=== PATIENT | female | born 1935 | race Two or more races ===

== ENCOUNTER 2022-09-24 09:28 | Inpatient (IN) | payer OTHER, MEDICAID ==
[~2022-09-24] VITALS: Ht 157.5 cm; Wt 78.9 kg
[~2022-09-24 09:28] MED LIST: ASPI81CH43; GLYB2.5T9; LOSA25TA5; METF-370; NAPR125S6; PRAVASTATIN; TRIA25CA
[2022-09-24] MEDS ORDERED: ONDANSETRON HCL 4 MG/2 ML VIAL IV ONE (10:00)
[2022-09-24 10:12] LABS: Basophils # (auto) 0 10 ^3/uL (0-0.2); Basophils % (auto) 0.7 % (0.0-2.0); Eosinophils # (auto) 0.1 10 ^3/uL (0-0.8); Monocytes # (auto) 0.6 10 ^3/uL (0-1.3); Nucleated Red Blood Cells % 0.1 %
[2022-09-24 10:14] LABS: Eosinophils % (auto) 1.2 % (0.0-7.0); Hematocrit 40.5 % (36.0-46.0); Hemoglobin 12.8 g/dL (12.2-16.2); Lymphocytes % (auto) 15.7 % (10.0-50.0); Mean Corpuscular Hemoglobin 26.4 pg (28.0-32.0); Mean Corpuscular Hgb Conc. 31.6 g/dL (32.0-36.0); Mean Corpuscular Volume 83.4 fL (80.0-100.0); Monocytes % (auto) 9.6 % (0.0-12.0); Neutrophils # (auto) 4.6 10 ^3/uL (1.6-8.6); Neutrophils % (auto) 72.8 % (37.0-80.0); Red Blood Cells 4.86 10^6/uL (4.0-5.20); Red Cell Distribution Width 15.3 % (11.8-14.3); White Blood Cell 6.3 10^3/uL (4.4-10.8)
[2022-09-24 10:29] LABS: Potassium 4.8 mmol/L (3.5-5.1)
[2022-09-24 10:37] LABS: Albumin 3.6 g/dL (3.4-5.0); BUN/Creatinine Ratio 13.4 (10.0-20.0); Bilirubin, Total 0.3 mg/dL (0.2-1.0); Calcium 8.7 mg/dL (8.5-10.1); Magnesium 1.5 mg/dL (1.6-2.6); Total Protein 7.1 g/dL (6.4-8.2)
[2022-09-24] MEDS ORDERED: PROCHLORPERAZINE EDISYLATE 5 MG/ML 2ML VIAL IV ONE (13:30)
[2022-09-24 14:04] LABS: Urine Bacteria NONE SEEN /hpf (None Seen); Urine Blood Negative /uL (Negative); Urine WBC 1 /hpf (0 - 5)
[2022-09-24] MEDS ORDERED: NITROGLYCERIN 0.4 MG SL TAB SL PRN (15:00)
[2022-09-24] MEDS ORDERED: DEXTROSE (50%) 50ML SYRG IV PRN (15:00)
[2022-09-24] MEDS ORDERED: MECLIZINE HCL 25 MG TAB PO ONE (15:00)
[2022-09-24] MEDS ORDERED: MORPHINE SULFATE INJ 2 MG/ml SYRG IV PRN (15:00)
[2022-09-24] MEDS: SODIUM CHLORIDE 0.9% 1,000 ML IV SCH ×2 (15:17→15:54)
[2022-09-24] MEDS: MAGNESIUM SULFATE 1GM/100ML 100 ML IV SCH ×3 (15:17→17:14)
[2022-09-24 15:30] LABS: Cholesterol 148 mg/dL (< 200)
[2022-09-24 15:32] LABS: HDL Cholesterol 39 mg/dL (40-59); LDL Cholesterol 92 mg/dL (< 100); Triglycerides 168 mg/dL (< 150)
[2022-09-24 15:59] LABS: Alcohol, Urine < 3.0 mg/dL (0-10); Amphetamine Screen, Urine NEGATIVE (NEGATIVE); Barbiturate Scree,Urine NEGATIVE (NEGATIVE); Benzodiazephine Screen, Urine NEGATIVE (NEGATIVE); Cannabinoid Screen, Urine NEGATIVE (NEGATIVE); Cocaine Screen, Urine NEGATIVE (NEGATIVE); Opiate Scree,Urine NEGATIVE (NEGATIVE); Phencyclidine Screen, Urine NEGATIVE (NEGATIVE)
[2022-09-24] MEDS: ACCU-CHEK COMFORT CURVE STRIP VI SCH ×2 (17:21→22:20)
[2022-09-24] MEDS: InsuLIN REG 1unit/0.01ml Soln (100units/ml) SC SCH ×2 (17:22→22:00)
[2022-09-25 05:31] LABS: Basophils # (auto) 0 10 ^3/uL (0-0.2); Eosinophils # (auto) 0 10 ^3/uL (0-0.8); Lymphocytes # (auto) 1.4 10 ^3/uL (0.4-5.4); Monocytes # (auto) 0.6 10 ^3/uL (0-1.3); Neutrophils # (auto) 1.7 10 ^3/uL (1.6-8.6)
[2022-09-25 05:33] LABS: Basophils % (auto) 0.6 % (0.0-2.0); Eosinophils % (auto) 0.6 % (0.0-7.0); Hematocrit 36.9 % (36.0-46.0); Hemoglobin 11.8 g/dL (12.2-16.2); Lymphocytes % (auto) 36.7 % (10.0-50.0); Mean Corpuscular Hemoglobin 26.7 pg (28.0-32.0); Mean Corpuscular Hgb Conc. 31.8 g/dL (32.0-36.0); Mean Corpuscular Volume 83.9 fL (80.0-100.0); Monocytes % (auto) 15.8 % (0.0-12.0); Neutrophils % (auto) 46.3 % (37.0-80.0); Nucleated Red Blood Cells % 0.4 %; Red Cell Distribution Width 15.1 % (11.8-14.3); White Blood Cell 3.7 10^3/uL (4.4-10.8)
[2022-09-25 05:51] LABS: Potassium 4.1 mmol/L (3.5-5.1)
[2022-09-25 06:03] LABS: BUN/Creatinine Ratio 13.6 (10.0-20.0); Bilirubin, Total 0.2 mg/dL (0.2-1.0); Total Protein 6.5 g/dL (6.4-8.2)
[2022-09-25] MEDS: ACCU-CHEK COMFORT CURVE STRIP VI SCH ×4 (06:29→22:00)
[2022-09-25] MEDS: InsuLIN REG 1unit/0.01ml Soln (100units/ml) SC SCH ×4 (06:29→22:00)
[2022-09-25] MEDS: MECLIZINE HCL 25 MG TAB PO PRN ×2 (06:56→16:17)
[2022-09-25 09:54] VITALS: BP 154/79
[2022-09-25] MEDS: ONDANSETRON HCL 4 MG/2 ML VIAL IV PRN ×2 (10:41→16:18)
[2022-09-25] MEDS: ASPirin 81 mg TAB PO SCH (10:44)
[2022-09-25] MEDS: LOSARTAN POTASSIUM 25 MG TAB PO SCH (10:44)
[2022-09-25] MEDS: ENOXAPARIN SOD 40 MG/0.4 ML SYRINGE SC SCH (10:45)
[2022-09-25 13:00] VITALS: BP_SYST 116; BP_SYST 155; BP_SYST 156; BP_DIAS 56; BP_DIAS 60; BP_DIAS 73
[2022-09-25] MEDS ORDERED: IOHEXOL 350 MG/ML 100ML IJ ONE (16:03)
[2022-09-25] MEDS ORDERED: diphenhdrAMINE HCL 50 MG/1 ML VL IV ONE (16:15)
[2022-09-25] MEDS ORDERED: PANTOPRAZOLE 40 MG/10 ML VIAL INJ IV ONE (16:15)
[2022-09-25] MEDS ORDERED: methylPREDNISolone SOD SUCC 40 MG/ML VL IV ONE (16:15)
[2022-09-25 17:16] VITALS: BP 140/63
[2022-09-25] MEDS: SODIUM CHLORIDE 0.9% 1,000 ML IV SCH (17:40)
[2022-09-25] MEDS ORDERED: DexAMETHasone SOD PHOS 10MG/1ML VIAL INJ IV ONE (18:00)
[2022-09-25 20:00] VITALS: BP 154/79
[2022-09-25 22:00] VITALS: BP_SYST 150; BP_SYST 156; BP_SYST 171; BP_DIAS 67; BP_DIAS 79; BP_DIAS 81
[2022-09-25] MEDS: ATORVASTATIN 20 MG TAB PO SCH (22:47)
[2022-09-26 05:00] VITALS: BP 154/62
[2022-09-26] MEDS: InsuLIN REG 1unit/0.01ml Soln (100units/ml) SC SCH ×4 (06:53→21:20)
[2022-09-26] MEDS: ACCU-CHEK COMFORT CURVE STRIP VI SCH ×4 (06:55→21:20)
[2022-09-26] MEDS: SODIUM CHLORIDE 0.9% 1,000 ML IV SCH ×2 (06:56→20:20)
[2022-09-26 09:00] VITALS: BP 151/64
[2022-09-26] MEDS: ASPirin 81 mg TAB PO SCH (10:11)
[2022-09-26] MEDS: ENOXAPARIN SOD 40 MG/0.4 ML SYRINGE SC SCH (10:11)
[2022-09-26] MEDS: LOSARTAN POTASSIUM 25 MG TAB PO SCH (10:11)
[2022-09-26 12:41] VITALS: BP 164/69
[2022-09-26 16:41] VITALS: BP 144/71
[2022-09-26 20:00] VITALS: BP 146/76
[2022-09-26] MEDS: ATORVASTATIN 20 MG TAB PO SCH (21:17)
[2022-09-26 22:00] VITALS: BP 152/57
[2022-09-27 05:00] VITALS: BP 167/65
[2022-09-27] MEDS: ACCU-CHEK COMFORT CURVE STRIP VI SCH ×4 (06:04→21:20)
[2022-09-27] MEDS: InsuLIN REG 1unit/0.01ml Soln (100units/ml) SC SCH ×4 (06:05→21:47)
[2022-09-27 08:46] VITALS: BP 174/87
[2022-09-27] MEDS: SODIUM CHLORIDE 0.9% 1,000 ML IV SCH ×2 (08:57→23:00)
[2022-09-27] MEDS: ENOXAPARIN SOD 40 MG/0.4 ML SYRINGE SC SCH (08:59)
[2022-09-27] MEDS: LOSARTAN POTASSIUM 25 MG TAB PO SCH (09:00)
[2022-09-27] MEDS: ASPirin 81 mg TAB PO SCH (09:00)
[2022-09-27] MEDS: ONDANSETRON HCL 4 MG/2 ML VIAL IV PRN (11:37)
[2022-09-27 13:00] VITALS: BP 176/76
[2022-09-27] MEDS: hydrALAZINE HCL 20 MG/ML VL IV PRN (13:00)
[2022-09-27] MEDS: ACETAMINOPHEN 325 MG TAB PO PRN (13:01)
[2022-09-27 17:00] VITALS: BP 143/76
[2022-09-27] MEDS ORDERED: GABA-1250 PO (18:06)
[2022-09-27] MEDS ORDERED: GLIP2.5T9 PO (18:13)
[2022-09-27] MEDS ORDERED: FENO160T PO (18:13)
[2022-09-27] MEDS ORDERED: PANT40T PO (18:13)
[2022-09-27] MEDS ORDERED: METF-371 PO (18:13)
[2022-09-27] MEDS ORDERED: GLYB5TAB8 PO (18:13)
[2022-09-27] MEDS ORDERED: POTA1TAB61 PO (18:13)
[2022-09-27] MEDS ORDERED: TRAM50TA2 PO (18:13)
[2022-09-27 20:00] VITALS: BP 138/54
[2022-09-27] MEDS: ATORVASTATIN 20 MG TAB PO SCH (21:17)
[2022-09-27 22:00] VITALS: BP 138/54
[2022-09-28] MEDS: hydrALAZINE HCL 20 MG/ML VL IV PRN ×2 (04:47→18:41)
[2022-09-28 05:00] VITALS: BP 185/75
[2022-09-28] MEDS: ACCU-CHEK COMFORT CURVE STRIP VI SCH ×4 (06:02→21:50)
[2022-09-28] MEDS: InsuLIN REG 1unit/0.01ml Soln (100units/ml) SC SCH ×4 (06:03→21:51)
[2022-09-28] MEDS: ENOXAPARIN SOD 40 MG/0.4 ML SYRINGE SC SCH (08:38)
[2022-09-28] MEDS: LOSARTAN POTASSIUM 25 MG TAB PO SCH (08:38)
[2022-09-28] MEDS: ASPirin 81 mg TAB PO SCH (08:39)
[2022-09-28 09:00] VITALS: BP 124/70
[2022-09-28] MEDS: SODIUM CHLORIDE 0.9% 1,000 ML IV SCH (11:42)
[2022-09-28 13:00] VITALS: BP 105/60
[2022-09-28] MEDS: TRIAMTERENE/HCTZ 37.5/25 MG CAP/TAB PO SCH (13:00)
[2022-09-28 17:00] VITALS: BP 132/71
[2022-09-28] MEDS: ACETAMINOPHEN 325 MG TAB PO PRN (18:40)
[2022-09-28] MEDS: ONDANSETRON HCL 4 MG/2 ML VIAL IV PRN (20:23)
[2022-09-28] MEDS: MECLIZINE HCL 25 MG TAB PO PRN (20:36)
[2022-09-28] MEDS: ATORVASTATIN 20 MG TAB PO SCH (21:43)
[2022-09-28 22:00] VITALS: BP 111/62
[2022-09-29] MEDS: SODIUM CHLORIDE 0.9% 1,000 ML IV SCH ×2 (03:26→17:37)
[2022-09-29 05:00] VITALS: BP 150/72
[2022-09-29 06:05] LABS: Basophils # (auto) 0 10 ^3/uL (0-0.2); Eosinophils # (auto) 0 10 ^3/uL (0-0.8); Eosinophils % (auto) 1.1 % (0.0-7.0); Lymphocytes # (auto) 1.3 10 ^3/uL (0.4-5.4); Monocytes # (auto) 0.4 10 ^3/uL (0-1.3); Nucleated Red Blood Cells % 0.2 %; White Blood Cell 3.2 10^3/uL (4.4-10.8)
[2022-09-29] MEDS: ACCU-CHEK COMFORT CURVE STRIP VI SCH ×4 (06:05→21:32)
[2022-09-29] MEDS: InsuLIN REG 1unit/0.01ml Soln (100units/ml) SC SCH ×4 (06:07→21:32)
[2022-09-29 06:09] LABS: Basophils % (auto) 0.4 % (0.0-2.0); Hematocrit 38.6 % (36.0-46.0); Hemoglobin 12.5 g/dL (12.2-16.2); Lymphocytes % (auto) 41.3 % (10.0-50.0); Mean Corpuscular Hemoglobin 26.8 pg (28.0-32.0); Mean Corpuscular Hgb Conc. 32.3 g/dL (32.0-36.0); Mean Corpuscular Volume 82.8 fL (80.0-100.0); Monocytes % (auto) 11.8 % (0.0-12.0); Neutrophils # (auto) 1.5 10 ^3/uL (1.6-8.6); Neutrophils % (auto) 45.4 % (37.0-80.0); Red Blood Cells 4.66 10^6/uL (4.0-5.20); Red Cell Distribution Width 15.5 % (11.8-14.3)
[2022-09-29 06:27] LABS: Potassium 3.7 mmol/L (3.5-5.1)
[2022-09-29 06:37] LABS: BUN/Creatinine Ratio 15.4 (10.0-20.0); Bilirubin, Total 0.4 mg/dL (0.2-1.0); Calcium 8.1 mg/dL (8.5-10.1); Total Protein 6.6 g/dL (6.4-8.2)
[2022-09-29 06:42] LABS: INR 0.92 (0.9-1.15); Partial Thromboplastin Time 28.3 sec (24.6-33.4)
[2022-09-29 08:43] VITALS: BP 169/70
[2022-09-29] MEDS: TRIAMTERENE/HCTZ 37.5/25 MG CAP/TAB PO SCH (09:15)
[2022-09-29] MEDS: LOSARTAN POTASSIUM 25 MG TAB PO SCH (09:16)
[2022-09-29 12:32] VITALS: BP 147/73
[2022-09-29] MEDS: ENOXAPARIN SOD 40 MG/0.4 ML SYRINGE SC SCH (12:48)
[2022-09-29] MEDS: ASPirin 81 mg TAB PO SCH (12:48)
[2022-09-29] MEDS: ONDANSETRON HCL 4 MG/2 ML VIAL IV PRN (14:25)
[2022-09-29] MEDS: MECLIZINE HCL 25 MG TAB PO PRN (14:25)
[2022-09-29] MEDS: hydrALAZINE HCL 20 MG/ML VL IV PRN (17:04)
[2022-09-29 17:18] VITALS: BP 154/73
[2022-09-29] MEDS: PANTOPRAZOLE 40 MG/10 ML VIAL INJ IV SCH (21:32)
[2022-09-29] MEDS: ATORVASTATIN 20 MG TAB PO SCH (21:32)
[2022-09-29] MEDS: diphenhdrAMINE HCL 25 MG CAP PO SCH (21:32)
[2022-09-29 22:00] VITALS: BP 124/59
[2022-09-30] VITALS (12 sets, daily range): BP systolic 111–150; BP diastolic 46–94
[2022-09-30 06:00] LABS: Basophils # (auto) 0 10 ^3/uL (0-0.2); Basophils % (auto) 0.5 % (0.0-2.0); Eosinophils # (auto) 0.1 10 ^3/uL (0-0.8); Eosinophils % (auto) 1.6 % (0.0-7.0); Hemoglobin 12.5 g/dL (12.2-16.2); Lymphocytes # (auto) 1.6 10 ^3/uL (0.4-5.4); Mean Corpuscular Hemoglobin 26.8 pg (28.0-32.0); Monocytes # (auto) 0.4 10 ^3/uL (0-1.3); Red Blood Cells 4.67 10^6/uL (4.0-5.20); White Blood Cell 4.6 10^3/uL (4.4-10.8)
[2022-09-30 06:03] LABS: Hematocrit 39.2 % (36.0-46.0); Lymphocytes % (auto) 35.2 % (10.0-50.0); Mean Corpuscular Hgb Conc. 31.9 g/dL (32.0-36.0); Mean Corpuscular Volume 83.9 fL (80.0-100.0); Monocytes % (auto) 8.4 % (0.0-12.0); Neutrophils # (auto) 2.5 10 ^3/uL (1.6-8.6); Neutrophils % (auto) 54.3 % (37.0-80.0); Nucleated Red Blood Cells % 0.4 %; Red Cell Distribution Width 15.4 % (11.8-14.3)
[2022-09-30 06:11] LABS: Anion Gap 5 (5-15); Calcium 8.3 mg/dL (8.5-10.1); Carbon Dioxide 25 mmol/L (21-32); Chloride 106 mmol/L (98-107); GFR African American 154 mL/min; GFR Non-African American 127 mL/min; Glucose 124 mg/dL (74-106); Potassium 3.7 mmol/L (3.5-5.1); Sodium 136 mmol/L (136-145)
[2022-09-30 06:15] LABS: BUN/Creatinine Ratio 14.3 (10.0-20.0); Blood Urea Nitrogen 7 mg/dL (7-18)
[2022-09-30] MEDS: InsuLIN REG 1unit/0.01ml Soln (100units/ml) SC SCH ×4 (06:26→22:00)
[2022-09-30] MEDS: ACCU-CHEK COMFORT CURVE STRIP VI SCH ×4 (06:27→21:42)
[2022-09-30] MEDS: SODIUM CHLORIDE 0.9% 1,000 ML IV SCH ×2 (06:27→17:01)
[2022-09-30 06:32] LABS: INR 0.98 (0.9-1.15); Partial Thromboplastin Time 28.1 sec (24.6-33.4)
[2022-09-30] MEDS: PANTOPRAZOLE 40 MG/10 ML VIAL INJ IV SCH ×2 (09:16→21:33)
[2022-09-30] MEDS: TRIAMTERENE/HCTZ 37.5/25 MG CAP/TAB PO SCH (09:17)
[2022-09-30] MEDS: ASPirin 81 mg TAB PO SCH (09:17)
[2022-09-30] MEDS: diphenhdrAMINE HCL 25 MG CAP PO SCH ×2 (09:17→21:33)
[2022-09-30] MEDS: ENOXAPARIN SOD 40 MG/0.4 ML SYRINGE SC SCH (09:18)
[2022-09-30] MEDS: LOSARTAN POTASSIUM 25 MG TAB PO SCH (09:18)
[2022-09-30] MEDS ORDERED: methylPREDNISolone SOD SUCC 40 MG/ML VL IV SCH (10:00)
[2022-09-30] MEDS ORDERED: IODIXANOL 320MG/ML 100ML BTL IV ONE ×2 (10:56→12:24)
[2022-09-30] MEDS ORDERED: LIDOCAINE 2%HCL (LOCAL ANESTH.) INJ 20ML MDV ONE (10:56)
[2022-09-30] MEDS ORDERED: GLYCOPYRROLATE 0.2 MG/ML 1ML VIAL ONE (11:05)
[2022-09-30] MEDS ORDERED: ANGIOMAX 250 MG VIAL IV ONE ×2 (11:05→12:24)
[2022-09-30] MEDS ORDERED: SODIUM CHL 0.9% 50 ML ONE ×2 (11:06→12:24)
[2022-09-30] MEDS ORDERED: PHENYLEPHRINE IV 0 ML IV ONE (11:17)
[2022-09-30] MEDS ORDERED: PHENYLEPHRINE HCL 10 MG/ML VL ONE (11:17)
[2022-09-30] MEDS ORDERED: LIDOCAINE 2%HCL (LOCAL ANESTH.) INJ 10ml MDV ONE (11:17)
[2022-09-30] MEDS ORDERED: hydrALAZINE HCL 20 MG/ML VL ONE (11:25)
[2022-09-30] MEDS: ATORVASTATIN 20 MG TAB PO SCH (21:33)
[2022-10-01 04:59] VITALS: BP 148/71
[2022-10-01] MEDS: ACCU-CHEK COMFORT CURVE STRIP VI SCH ×2 (05:45→11:43)
[2022-10-01] MEDS: InsuLIN REG 1unit/0.01ml Soln (100units/ml) SC SCH ×2 (05:46→12:10)
[2022-10-01] MEDS: SODIUM CHLORIDE 0.9% 1,000 ML IV SCH (06:36)
[2022-10-01 08:00] VITALS: BP_SYST 124; BP_SYST 140; BP_DIAS 60; BP_DIAS 87
[2022-10-01] MEDS: TRIAMTERENE/HCTZ 37.5/25 MG CAP/TAB PO SCH (10:29)
[2022-10-01] MEDS: ENOXAPARIN SOD 40 MG/0.4 ML SYRINGE SC SCH (10:30)
[2022-10-01] MEDS: LOSARTAN POTASSIUM 25 MG TAB PO SCH (10:30)
[2022-10-01] MEDS: ASPirin 81 mg TAB PO SCH (10:30)
[2022-10-01 13:11] VITALS: BP 142/60
[2022-10-01 15:07] VITALS: BP 124/87
== END 2022-10-01 18:19 | disposition home health service (06) | DRG 68 ==
LOC: EDBD 09:28 → ER 09:28 → TELE 14:55 → TELE-WESTW 09-25 09:19
PROVIDERS: ADMIT Nurse Practitioner Family; ATTEND Internal Medicine Geriatric Medicine
PROC: 4A00X4Z Measurement of Central Nervous Electrical Activity, External Approach (ICD-10-PCS; principal; 2022-09-26)
PROC: B318YZZ Fluoroscopy of Bilateral Internal Carotid Arteries using Other Contrast (ICD-10-PCS; 2022-09-30)
DX: I65.22 Occlusion and stenosis of left carotid artery (principal); E44.1 Mild protein-calorie malnutrition; K80.20 Calculus of gallbladder without cholecystitis without obstruction; I10 Essential (primary) hypertension; E83.42 Hypomagnesemia; E11.9 Type 2 diabetes mellitus without complications; Z20.822 Contact with and (suspected) exposure to COVID-19; E66.01 Morbid (severe) obesity due to excess calories; E78.00 Pure hypercholesterolemia, unspecified; M81.0 Age-related osteoporosis without current pathological fracture; F17.200 Nicotine dependence, unspecified, uncomplicated; Z79.4 Long term (current) use of insulin; Z79.82 Long term (current) use of aspirin; Z82.49 Family history of ischemic heart disease and other diseases of the circulatory system; Z79.899 Other long term (current) drug therapy; Z83.3 Family history of diabetes mellitus; Z98.49 Cataract extraction status, unspecified eye; Z68.31 Body mass index [BMI] 31.0-31.9, adult
CPT/HCPCS: 36224; 36415; 70450; 70498; 70551; 71045; 74176; 76705; 80048; 80053; 80061; 80307; 81001; 82962; 83036; 83690; 83735; 84443; 84484; 85025; 85610; 85730; 87426; 93005; 93306; 93886; 95819; 96374; 96375; 97110; 97116; 97530; 99152; 99153; C1769; C9113; G0378; J1100; J1815; J2001; J2405; Q9967

== ENCOUNTER 2023-03-01 14:22 | Emergency (ER) | payer OTHER, MEDICAID ==
[~2023-03-01] VITALS: Ht 149.9 cm; Wt 73.6 kg
[~2023-03-01 14:22] MED LIST changes: +FENO160T PO; +GABA-1250 PO; +GLIP2.5T9 PO; +GLYB5TAB8 PO; +METF-371 PO; +PANT40T PO; +POTA1TAB61 PO; -PRAVASTATIN; +TRAM50TA2 PO
[2023-03-01] MEDS ORDERED: LIDOCAINE VISCOUS 2% 15ML UD PO ONE (18:15)
[2023-03-01] MEDS ORDERED: MAALOX PLUS or MAALOX 30 ML PO ONE (18:15)
[2023-03-01] MEDS ORDERED: DONNATAL 5ml ORAL Elix (BELLADONNA ALK-PHENOBARB) PO ONE (18:15)
[2023-03-01 18:55] LABS: Basophils # (auto) 0.1 10 ^3/uL (0-0.2); Eosinophils # (auto) 0 10 ^3/uL (0-0.8); Eosinophils % (auto) 0.5 % (0.0-7.0); Hematocrit 40.2 % (36.0-46.0); Lymphocytes % (auto) 21.6 % (10.0-50.0); Mean Corpuscular Hgb Conc. 32.4 g/dL (32.0-36.0); Mean Corpuscular Volume 86.6 fL (80.0-100.0); Monocytes # (auto) 0.6 10 ^3/uL (0-1.3); Monocytes % (auto) 6.4 % (0.0-12.0); Neutrophils # (auto) 6.4 10 ^3/uL (1.6-8.6); Neutrophils % (auto) 70.5 % (37.0-80.0); Nucleated Red Blood Cells % 0.1 %; Red Blood Cells 4.64 10^6/uL (4.0-5.20); Red Cell Distribution Width 14.5 % (11.8-14.3); White Blood Cell 9.1 10^3/uL (4.4-10.8)
[2023-03-01 19:04] LABS: Alanine Aminotransferase 25 U/L (7-40); Albumin 4.9 g/dL (3.2-4.8); Alkaline Phosphatase 41 U/L (46-116); Anion Gap 5 (5-15); Aspartate Aminotransferase 24 U/L (13-40); Bilirubin, Total 0.5 mg/dL (0.2-1.0); Blood Urea Nitrogen 8 mg/dL (9-23); Calcium 9.4 mg/dL (8.7-10.4); Carbon Dioxide 28 mmol/L (20-30); Chloride 99 mmol/L (98-107); Glucose 216 mg/dL (74-106); Lipase 48 U/L (12-53); Potassium 5.1 mmol/L (3.5-5.1); Sodium 132 mmol/L (136-145); Total Protein 7.9 g/dL (5.7-8.2)
[2023-03-01] MEDS ORDERED: PANT40TA2 PO (19:30)
[2023-03-01 22:25] VITALS: BP 147/63; PULSE 87; RESP 18; TEMP 98.5; O2SAT 96
== END 2023-03-01 22:38 | disposition home or self-care (01) ==
LOC: ER 14:22
DX: K29.70 Gastritis, unspecified, without bleeding (principal); E11.9 Type 2 diabetes mellitus without complications; E78.5 Hyperlipidemia, unspecified; I10 Essential (primary) hypertension; Z91.013 Allergy to seafood
CPT/HCPCS: 36415; 80053; 83690; 85025; 93005

== ENCOUNTER 2024-05-30 15:07 | Emergency (ER) | payer OTHER, MEDICAID ==
[~2024-05-30] VITALS: Ht 154.9 cm; Wt 72.0 kg
[~2024-05-30 15:07] MED LIST changes: +PANT40TA2 PO; +POTA-215 PO; -POTA1TAB61 PO
--- NOTE | 2024-05-30 15:53 | DVH ---
CHEST RADIOGRAPH Indication: TACHY Technique: Single frontal view of the chest was obtained COMPARISON: XY CHEST PORTABLE on DOS: 09/29/22 FINDINGS: Lines and Tubes: None Lungs: Clear Pleura: No effusion. No pneumothorax. Cardiomediastinal contours: Unremarkable Bones: Unremarkable IMPRESSION: No acute disease.
[2024-05-30 16:09] LABS: Basophils # (auto) 0.1 10 ^3/uL (0-0.2); Eosinophils # (auto) 0 10 ^3/uL (0-0.8); Eosinophils % (auto) 0.5 % (0.0-7.0); Hematocrit 40.6 % (36.0-46.0); Hemoglobin 13.6 g/dL (12.2-16.2); Lymphocytes # (auto) 2.4 10 ^3/uL (0.4-5.4); Lymphocytes % (auto) 27.5 % (10.0-50.0); Mean Corpuscular Hemoglobin 28.8 pg (28.0-32.0); Mean Corpuscular Hgb Conc. 33.4 g/dL (32.0-36.0); Mean Corpuscular Volume 86.3 fL (80.0-100.0); Monocytes # (auto) 0.8 10 ^3/uL (0-1.3); Neutrophils # (auto) 5.5 10 ^3/uL (1.6-8.6); Platelet Count (auto) 302 10^3/uL (140-450); Red Blood Cells 4.71 10^6/uL (4.0-5.20); Red Cell Distribution Width 15.2 % (11.8-14.3); White Blood Cell 8.8 10^3/uL (4.4-10.8)
[2024-05-30 16:35] LABS: Alanine Aminotransferase 25 U/L (7-40); Albumin 4.6 g/dL (3.2-4.8); Anion Gap 11 (5-15); Aspartate Aminotransferase 20 U/L (13-40); BUN/Creatinine Ratio 23.8 (10.0-20.0); Bilirubin, Total 0.4 mg/dL (0.2-1.0); Blood Urea Nitrogen 19 mg/dL (9-23); Calcium 9.2 mg/dL (8.7-10.4); Carbon Dioxide 28 mmol/L (20-31); Lipase 41 U/L (12-53); Sodium 136 mmol/L (136-145); Total Protein 7.2 g/dL (5.7-8.2)
[2024-05-30 16:36] LABS: Lactic Acid w/Reflex 3.6 mmol/L (0.4-2.0)
[2024-05-30 16:57] LABS: Alkaline Phosphatase 34 U/L (46-116); Chloride 97 mmol/L (98-107); Glucose 221 mg/dL (74-106)
--- NOTE | 2024-05-30 16:57 | ED.PDOC ---
History of present illness HPI Comments HPI: 89 y/o F, with PMHX of DM, HTN, HDL, and ARTHRITIS presents to the ED for CC of hyperglycemia. Patient states, she has been experiencing irregularly high blood pressure readings wit associated symptoms of blurred vision, dry mouth, and excessive urination x1day. Patient comments on, checking her blood sugar earlier today (05/30/24); patient's blood sugar was 220. Patient recheck her blood at 1200, glucometer read at 300's. Patient denies social history. Patient denies fever chills, flank pain, abdominal pain, dysuria or hematuria. No other symptoms or modifying factors at this time. Initial Vitals: Temp:97.8 BP: 141/63 HR:120 RR:20 O2 Sat.:95 Past Medical History: DM, HTN, HDL, ARTHRITIS Past Surgical History: DENIES Social History: Denies smoking, ETOH, and drug use Medication: Denies Allergies: NKDA Chief Complaint: Hyperglycemia Time Seen by MD: 16:40 Primary Care Provider: UNKNOWN History of present illness: Nurses Notes, Allergies Allergies: Coded Allergies: Shellfish Allergy (Unverified Allergy, Severe, 09/25/22) Anaphylactic Home Meds Active Scripts Pantoprazole Sodium Sesquihydr (Protonix) 40 Mg Tab, 40 MG PO DAILY, #30 TAB Prov:JACKY NAVARRO Guillermo DO 03/01/23 Reported Medications Metformin Hydrochloride (Metformin Hcl) 850 Mg Tab, 1 TAB PO BID 09/27/22 Tramadol Hcl (Tramadol Hcl) 50 Mg Tab, 1 TAB PO Q8HPRN PRN for pain 09/27/22 Glipizide (Glipizide Er) 2.5 Mg Tab, 2.5 MG PO DAILY@DINNER for 30 Days, MG 09/27/22 Glyburide (Glyburide) 5 Mg Tab, 5 MG PO DAILY for 30 Days, MG 09/27/22 Fenofibrate (Fenofibrate) 160 Mg Tab, 1 TAB PO DAILY, #30 TAB 5 Refills 09/27/22 Potassium Chloride (Klor-Con M10) 10 Meq Tab, 1 TAB PO DAILY, #30 TAB 5 Refills 09/27/22 Pantoprazole Sodium Sesquihydr (Pantoprazole Sodium) 40 Mg Tab, 20 MG PO DAILY, TAB 5/28/23 Gabapentin (Gabapentin) 300 Mg Cap, 300 MG PO BID for 30 Days, MG 09/27/22 Aspirin (Asa) 81 Mg Ch 09/07/10 Glyburide (Micronase) 2.5 Mg Tb 09/07/10 Losartan Potassium (Cozaar) 25 Mg Tab 09/07/10 Naproxen (Naprosyn) 125 Mg/5 Ml Natalie 09/07/10 Metformin Hydrochloride (Metformin Hcl) 500 Mg Tab 09/07/10 Hydrochlorothiazide W/Triamter (Hctz/Triamterene) 1 Cap Cap 09/07/10 Information Source: Patient Mode of Arrival: Ambulatory Was a procedure done? Was a procedure done?: No Differential Diagnosis (DM) Differential Diagnosis: Dehydration, Diabetic Coma, DKA, Electrolyte Abnormality, Gastroenteritis, Hyperglycemia, Hyperosmolar State, Pyelonephritis, UTI X-Ray, Labs, Meds, VS Vital Signs Date Time Temp Pulse Resp B/P (MAP) Pulse Ox O2 Delivery O2 Flow Rate FiO2 05/31/24 00:37 98.4 88 20 151/68 (95) 96 98.4 05/31/24 00:37 88 20 96 Room Air 05/30/24 19:51 98 15 160/66 (97) 97 05/30/24 17:41 85 19 98 Room Air* 0 21 05/30/24 17:08 98.3 111 17 139/70 (93) 95 98.3 05/30/24 15:21 118 05/30/24 15:19 97.9 120 20 141/63 (89) 95 Lab Test 05/31/24 00:28 05/30/24 18:51 05/30/24 17:04 05/30/24 15:54 Range/Units POC Glucose 159 H 70-106 mg/dl Lactic Acid Level 2.7 *H 0.4-2.0 mmol/L Troponin I High Sensitivity 5 4 4 </=34 ng/L White Blood Count 8.8 4.4-10.8 10^3/uL Red Blood Count 4.71 4.0-5.20 10^6/uL Hemoglobin 13.6 12.2-16.2 g/dL Hematocrit 40.6 36.0-46.0 % Mean Corpuscular Volume 86.3 80.0-100.0 fL Mean Corpuscular Hemoglobin 28.8 28.0-32.0 pg Mean Corpuscular Hemoglobin Concent 33.4 32.0-36.0 g/dL Red Cell Distribution Width 15.2 H 11.8-14.3 % Platelet Count 302 140-450 10^3/uL Mean Platelet Volume 9.0 6.9-10.8 fL Neutrophils (%) (Auto) 62.0 37.0-80.0 % Lymphocytes (%) (Auto) 27.5 10.0-50.0 % Monocytes (%) (Auto) 9.0 0.0-12.0 % Eosinophils (%) (Auto) 0.5 0.0-7.0 % Basophils (%) (Auto) 1.0 0.0-2.0 % Neutrophils # (Auto) 5.5 1.6-8.6 10 ^3/uL Lymphocytes # (Auto) 2.4 0.4-5.4 10 ^3/uL Monocytes # (Auto) 0.8 0-1.3 10 ^3/uL Eosinophils # (Auto) 0 0-0.8 10 ^3/uL Basophils # (Auto) 0.1 0-0.2 10 ^3/uL Nucleated Red Blood Cells 0.0 % Sodium Level 136 136-145 mmol/L Potassium Level 4.0 3.5-5.1 mmol/L Chloride Level 97 L 98-107 mmol/L Carbon Dioxide Level 28 20-31 mmol/L Anion Gap 11 5-15 Blood Urea Nitrogen 19 9-23 mg/dL Creatinine 0.80 0.550-1.02 mg/dL Glomerular Filtration Rate Calc 71 >90 mL/min BUN/Creatinine Ratio 23.8 H 10.0-20.0 Serum Glucose 221 H 74-106 mg/dL Calcium Level 9.2 8.7-10.4 mg/dL Magnesium Level < 0.5 *L 1.6-2.6 mg/dL Total Bilirubin 0.4 0.2-1.0 mg/dL Aspartate Amino Transferase (AST) 20 13-40 U/L Alanine Aminotransferase (ALT) 25 7-40 U/L Alkaline Phosphatase 34 L 46-116 U/L B-Type Natriuretic Peptide 41.53 0-100 pg/mL Total Protein 7.2 5.7-8.2 g/dL Albumin 4.6 3.2-4.8 g/dL Lipase 41 12-53 U/L Test 05/30/24 15:52 05/30/24 15:25 05/30/24 15:16 Range/Units Lactic Acid Level 3.6 *H 0.4-2.0 mmol/L Urine Color Light-yellow Yellow Urine Clarity Clear Clear Urine pH 5.5 5.0-9.0 Urine Specific [place] 1.010 1.001-1.035 Urine Protein Negative Negative Urine Ketones Negative Negative Urine Blood Negative Negative /uL Urine Nitrite Negative Negative Urine Bilirubin Negative Negative Urine Urobilinogen Normal Negative mg/dL Urine Leukocyte Esterase Trace Negative /uL Urine RBC 1 0 - 4 /hpf Urine Microscopic WBC 1 0-5 /HPF Urine Squamous Epithelial Cells Few <5 /hpf Urine Bacteria Few H None Seen /hpf Urine Glucose Normal Normal mg/dL POC Glucose 228 H 70-106 mg/dl [place] [address] Ph: [phone] DIAGNOSTIC IMAGING Diagnostic Imaging Report : [id number] Signed PATIENT: ESTHER VALDEZ ACCT: [id number] UNIT: [id number] : 1935 LOC: ER ROOM / BED: / AGE / SEX: 89 / F ADM STATUS: REG ER SERVICE 1531 ORDERING PHYSICIAN: PHILIPPE DE LA CRUZ DO PROCEDURE(s): CXRP - CHEST PORTABLE REASON: TACHY ORDER NUMBER(s): [id number], ACCESSION NUMBER(s): [id number] CHEST RADIOGRAPH Indication: TACHY Technique: Single frontal view of the chest was obtained COMPARISON: XY CHEST PORTABLE on DOS: 09/29/22 FINDINGS: Lines and Tubes: None Lungs: Clear Pleura: No effusion. No pneumothorax. Cardiomediastinal contours: Unremarkable Bones: Unremarkable IMPRESSION: No acute disease. ATED BY: WILLIAN RAYO MD DICTATED DATE/TIME: 05/30/241550 SIGNED BY: WILLIAN RAYO MD SIGNED DATE/TIME: 05/30/241550 CC: Time of 1ST Reevaluation: 17:20 Reevaluation 1ST: Unchanged Time of 2ND Reevaluation: 19:47 (The case was discussed with the [facility] team (HPI, physical exam, labs and diagnostic tests that were available at the time of disposition, ED course, treatment plan) on the phone. They agreed to transfer the patient to their service by ALS for a telemetry bed for further evaluation and treatment. Dr. Hicks. Authorization number is [id number]) Patient Education/Counseling: Diagnosis, Treatment Family Education/Counseling: Other Comments Patient presented with the above HPI.-- HYPERGLYCEMIA---workup was initiated. patient was found with the above mentioned diagnosis. the following medications were ordered: IV FLUIDS, Rocephin, magnesium replacement the following tests were ordered: LABS, CXR, EKG Patient ED course and VS have been stabilized. Patient has been reassessed in the ED and remained in a stable condition. Pertinent incidental findings were discussed with the patient and/or family. Patient/family voices understanding and is agreeable with plan. Patient has been observed in the ED adequate length of time to insure improvement/stability. Escalation of care considered: Consideration of escalation to observation or admission Patient was transferred to [facility] per insurance requirement for further evaluation and treatment. All the reports of any imaging studies that were ordered by myself were reviewed by myself. Departure 1 Departure Time of Disposition: 17:13 Impression: Primary Impression: Hypomagnesemia Additional Impression: UTI (urinary tract infection) Disposition: 02 SHORT TERM HOSPITAL Admit to: Tele Condition: Guarded Additional Instructions: [place] [address] Ph: [phone] DIAGNOSTIC IMAGING Diagnostic Imaging Report : [id number] Signed PATIENT: ESTHER VALDEZ ACCT: [id number] UNIT: [id number] : 1935 LOC: ER ROOM / BED: / AGE / SEX: 89 / F ADM STATUS: REG ER SERVICE 1531 ORDERING PHYSICIAN: PHILIPPE DE LA CRUZ DO PROCEDURE(s): CXRP - CHEST PORTABLE REASON: TACHY ORDER NUMBER(s): [id number], ACCESSION NUMBER(s): [id number] CHEST RADIOGRAPH Indication: TACHY Technique: Single frontal view of the chest was obtained COMPARISON: XY CHEST PORTABLE on DOS: 09/29/22 FINDINGS: Lines and Tubes: None Lungs: Clear Pleura: No effusion. No pneumothorax. Cardiomediastinal contours: Unremarkable Bones: Unremarkable IMPRESSION: No acute disease. ATED BY: WILLIAN RAYO MD DICTATED DATE/TIME: 05/30/24 155 SIGNED BY: WILLIAN RAYO MD SIGNED DATE/TIME: 05/30/24 155 CC: Discharged With: Self Stability Stability form required: No Critical Care Note Critical Care Time?: Yes (35 min-critical care time only) I personally scribed for PHILIPPE DE LA CRUZ DO ([email or web address]) on 05/30/24 at 16:57. Electronically submitted by Jamilah Garcia ([email or web address]). I personally scribed for PHILIPPE DE LA CRUZ DO ([email or web address]) on 05/30/24 at 16:59. Electronically submitted by Jamilah Garcia ([email or web address]). I personally scribed for PHILIPPE DE LA CRUZ DO ([email or web address]) on 05/30/24 at 17:00. Electronically submitted by Jamilah Garcia ([email or web address]). I personally scribed for PHILIPPE DE LA CRUZ DO ([email or web address]) on 05/30/24 at 17:07. Electronically submitted by Jamilah Garcia ([email or web address]). PHILIPPE DE LA CRUZ DO May 30, 2024 16:57
[2024-05-30] MEDS: SODIUM CHLORIDE 0.9% 1,000 ML IV ONE (17:04)
[2024-05-30 17:05] LABS: Magnesium < 0.5 mg/dL (1.6-2.6)
[2024-05-30] MEDS: MAGNESIUM OXIDE 400 MG TAB PO ONE (17:27)
[2024-05-30] MEDS: MAGNESIUM SULFATE 1GM/100ML 100 ML IV ONE (17:40)
[2024-05-30 17:41] VITALS: PULSE 85; RESP 19; O2SAT 98
[2024-05-30 19:33] LABS: Urine Bacteria FEW /hpf (None Seen); Urine Blood Negative /uL (Negative); Urine Clarity Clear (Clear); Urine Color Light-Yellow (Yellow); Urine Protein, UAD Negative (Negative); Urine Squamous Epithelial Cell FEW /hpf (<5); Urine Urobilinogen Normal (Negative); Urine WBC 1 /HPF (0-5); Urine pH 5.5 (5.0-9.0)
[2024-05-30] MEDS: cefTRIAXone 1GM/50ML D5W 50 ML IV ONE (20:13)
--- NOTE | 2024-05-30 22:21 | ECG ---
[facility] Test Date: 2024-05-30 Test Time: 15:21:36 Pat Name: ESTHER VALDEZ Department: ED Room: Gender: F Before School: [employer] : 1935 Requested By: PHILIPPE DE LA CRUZ Order Number: [id number] Reading MD: Braxton Brower Measurements Intervals [place] Rate: 118 P: 3 CO: 154 QRS: -13 QRSD: 85 T: -10 QT: 333 QTc: 467 Interpretive Statements Sinus tachycardia Left ventricular hypertrophy Borderline T abnormalities, inferior leads Baseline wander in lead(s) II Electronically Signed On 05-31-2024 8:55:42 PST by Braxton Brower Please click the below link to view image of tracing.
[2024-05-31 00:37] VITALS: BP 151/68; PULSE 88; RESP 20; TEMP 98.4; O2SAT 96
== END 2024-05-31 00:56 | disposition short-term general hospital (02) ==
LOC: ER 15:07
DX: N39.0 Urinary tract infection, site not specified (principal); E83.42 Hypomagnesemia; E11.9 Type 2 diabetes mellitus without complications; I10 Essential (primary) hypertension; Z88.8 Allergy status to other drugs, medicaments and biological substances; Z79.899 Other long term (current) drug therapy; Z79.84 Long term (current) use of oral hypoglycemic drugs
CPT/HCPCS: 36415; 71045; 80053; 81001; 82962; 83605; 83690; 83735; 83880; 84484; 85025; 93005; 96361; 96365; 96367; 99285; J0696; J3475; J7030

== ENCOUNTER 2024-08-30 14:20 | Emergency (ER) | payer OTHER, MEDICAID ==
[~2024-08-30] VITALS: Ht 170.2 cm; Wt 63.0 kg
[2024-08-30 14:45] VITALS: PULSE 103; RESP 18; O2SAT 95
--- NOTE | 2024-08-30 14:45 | ED.PDOC ---
History of Present Illness HPI Comments 89-year-old female brought in by EMS from home complaining of a nosebleed for the past 45 minutes. EMS states the patient reported that she has been having intermittent epistaxis for the past 3 weeks. Patient denies pain, difficulty breathing, headache, nausea or vomiting. She does state that she feels fatigued due to the bleeding. 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, Medications, Allergies Allergies: Coded Allergies: Shellfish Allergy (Unverified Allergy, Severe, 09/25/22) Anaphylactic Home Meds Active Scripts Pantoprazole Sodium Sesquihydr (Protonix) 40 Mg Tab, 40 MG PO DAILY, #30 TAB Prov:JACKY NAVARRO DO 03/01/23 Reported Medications Metformin Hydrochloride (Metformin Hcl) 850 Mg Tab, 1 TAB PO BID 09/27/22 Tramadol Hcl (Tramadol Hcl) 50 Mg Tab, 1 TAB PO Q8HPRN PRN for pain 09/27/22 Glipizide (Glipizide Er) 2.5 Mg Tab, 2.5 MG PO DAILY@DINNER for 30 Days, MG 09/27/22 Glyburide (Glyburide) 5 Mg Tab, 5 MG PO DAILY for 30 Days, MG 09/27/22 Fenofibrate (Fenofibrate) 160 Mg Tab, 1 TAB PO DAILY, #30 TAB 5 Refills 09/27/22 Potassium Chloride (Klor-Con M10) 10 Meq Tab, 1 TAB PO DAILY, #30 TAB 5 Refills 09/27/22 Pantoprazole Sodium Sesquihydr (Pantoprazole Sodium) 40 Mg Tab, 20 MG PO DAILY, TAB 09/27/22 Gabapentin (Gabapentin) 300 Mg Cap, 300 MG PO BID for 30 Days, MG 09/27/22 Aspirin (Asa) 81 Mg Ch 09/07/10 Glyburide (Micronase) 2.5 Mg Tb 09/07/10 Losartan Potassium (Cozaar) 25 Mg Tab 09/07/10 Naproxen (Naprosyn) 125 Mg/5 Ml Natalie 09/07/10 Metformin Hydrochloride (Metformin Hcl) 500 Mg Tab 09/07/10 Hydrochlorothiazide W/Triamter (Hctz/Triamterene) 1 Cap Cap 09/07/10 Information Source: Patient, Emergency Med Personnel Mode of Arrival: EMS Severity: Moderate Timing: Minutes Duration: Since onset, Minutes Prehospital treatment: None Past Medical History PAST MEDICAL HISTORY: Arthritis, DM, High Lipids, HTN Surgical History: Denies all surgeries SENIOR MEDICAL DIRECTOR History: Denies all SENIOR MEDICAL DIRECTOR Hx Family History Family History: Reviewed,noncontributory to illness, Unknown Social History Smoker: Non-Smoker Alcohol: Denies ETOH Use Drugs: Denies Drug Use Lives In: Home Constitutional: denies: chills, diaphoresis, fatigue, fever, malaise, sweats, weakness, others EENTM: reports: nose bleeding; denies: blurred vision, double vision, ear bleeding, ear discharge, ear drainage, ear pain, ear ringing, eye pain, eye redness, hearing loss, mouth pain, mouth swelling, nasal discharge, nose congestion, nose pain, photophobia, tearing, throat pain, throat swelling, voice changes, others Respiratory: denies: cough, hemoptysis, orthopnea, SOB at rest, shortness of breath, SOB with excertion, stridor, wheezing, others Cardiovascular: denies: chest pain, dizzy spells, diaphoresis, Dyspnea on exertion, edema, irregular heart beat, left arm pain, lightheadedness, palpitations, PND, syncope, others Gastrointestinal: denies: abdomen distended, abdominal pain, blood streaked bowels, constipated, diarrhea, dysphagia, difficulty swallowing, hematemesis, melena, nausea, poor appetite, poor fluid intake, rectal bleeding, rectal pain, vomiting, others Genitourinary: denies: abnormal vagina bleeding, burning, dyspareunia, dysuria, flank pain, frequency, hematuria, incontinence, pain, , vagina discharge, urgency, others Neurological: denies: dizziness, fainting, headache, left sided numbness, left sided weakness, numbness, paresthesia, pre-existing deficit, right sided numbness, right sided weakness, seizure, speech problems, tingling, tremors, weakness, others Musculoskeletal: denies: back pain, gout, joint pain, joint swelling, muscle pain, muscle stiffness, neck pain, others Integumetry: denies: bruises, change in color, change in hair/nails, dryness, laceration, lesions, lumps, rash, wounds, others Allergic/Immunocompromised: denies: Difficulty Healing, Frequent Infections, Hives, Itching, others Hematologic/Lymphatic: denies: anemia, blood clots, easy bleeding, easy bruising, swollen glands, others Endocrine: denies: excessive hunger, excessive sweating, excessive thirst, excessive urination, flushing, intolerance to cold, intolerance to heat, unexplained weight gain, unexplained weight loss, others Psychiatric: denies: anxiety, bipolar disorder, depression, hopeless, panic disorder, schizophrenia, sleepless, suicidal, others All Other Systems: Reviewed and Negative Physical Exam General Appearance: Mild Distress HEENT: Other (Pupils and face symmetric. Moderate dark red epistaxis from the right naris.) Neck: Full Range of Motion, Normal Inspection Respiratory: Lungs Clear, No Respiratory Distress, Normal Breath Sounds Cardiovascular: No Edema, No JVD, Regular Rate/Rhythm Breast Exam: Deferred Gastrointestinal: Non Tender, Soft Genitalia: Deferred Pelvic: Deferred Rectal: Deferred Extremities: Normal inspection, Normal range of motion, Non-tender, No pedal edema Neurologic: Alert (Oriented x4), Normal Affect, Normal Mood Cerebellar Function: NOT DONE Reflexes: NOT DONE Skin: Dry, Normal Color, Warm Lymphatic: NOT DONE Was a procedure done? Was a procedure done?: Yes Sedation Sedation?: No Nasal Cautery and Pack Indicaton: Anterior epitaxis Silver nitrate: Right Hemostasis: Was obtained Location of packing: Right Packing: Expanding sponge Informed consent obtained: Yes Risks/benefits/alt described: Yes Differential Dx Considerations may include: Anterior epistaxis, posterior epistaxis, coagulopathy, aspiration, among others X-Ray, Labs, Meds, VS Vital Signs Date Time Temp Pulse Resp B/P (MAP) Pulse Ox O2 Delivery O2 Flow Rate FiO2 08/30/24 20:10 97.7 88 18 134/62 (86) 91 97.7 08/30/24 18:10 98.0 93 20 132/54 (80) 90 98.0 08/30/24 16:00 98.1 96 24 116/67 (83) 92 98.1 08/30/24 16:00 113 08/30/24 14:45 103 18 95 Room Air* 0 21 08/30/24 14:45 98.7 103 18 134/56 (82) 95 98.7 08/30/24 14:25 98.7 120 18 176/61 (99) 98 98.7 Lab Test 08/30/24 14:48 Range/Units White Blood Count 7.5 4.4-10.8 10^3/uL Red Blood Count 4.30 4.0-5.20 10^6/uL Hemoglobin 12.7 12.2-16.2 g/dL Hematocrit 38.2 36.0-46.0 % Mean Corpuscular Volume 88.8 80.0-100.0 fL Mean Corpuscular Hemoglobin 29.5 28.0-32.0 pg Mean Corpuscular Hemoglobin Concent 33.3 32.0-36.0 g/dL Red Cell Distribution Width 13.9 11.8-14.3 % Platelet Count 267 140-450 10^3/uL Mean Platelet Volume 8.8 6.9-10.8 fL Neutrophils (%) (Auto) 59.6 37.0-80.0 % Lymphocytes (%) (Auto) 30.4 10.0-50.0 % Monocytes (%) (Auto) 7.9 0.0-12.0 % Eosinophils (%) (Auto) 1.0 0.0-7.0 % Basophils (%) (Auto) 1.1 0.0-2.0 % Neutrophils # (Auto) 4.5 1.6-8.6 10 ^3/uL Lymphocytes # (Auto) 2.3 0.4-5.4 10 ^3/uL Monocytes # (Auto) 0.6 0-1.3 10 ^3/uL Eosinophils # (Auto) 0.1 0-0.8 10 ^3/uL Basophils # (Auto) 0.1 0-0.2 10 ^3/uL Nucleated Red Blood Cells 0.0 % Prothrombin Time 11.4 9.3-11.8 sec Prothrombin Time INR 1.08 0.9-1.15 Activated Partial Thromboplast Time 25.5 24.5-34.5 SEC Sodium Level 142 136-145 mmol/L Potassium Level 4.2 3.5-5.1 mmol/L Chloride Level 104 98-107 mmol/L Carbon Dioxide Level 28 20-31 mmol/L Anion Gap 10 5-15 Blood Urea Nitrogen 13 9-23 mg/dL Creatinine 0.68 0.550-1.02 mg/dL Glomerular Filtration Rate Calc 84 >90 mL/min BUN/Creatinine Ratio 19.1 10.0-20.0 Serum Glucose 172 H 74-106 mg/dL Calcium Level 9.3 8.7-10.4 mg/dL PROCEDURE(s): CXRP - CHEST PORTABLE REASON: sob ORDER NUMBER(s): [id number], ACCESSION NUMBER(s): [id number] EXAM: XY CHEST PORTABLE Indication: sob Technique: Single frontal view of the chest was obtained Comparison: XY CHEST PORTABLE on DOS: 05/30/24, XY CHEST PORTABLE on DOS: 09/29/22 FINDINGS: Lines and Tubes: None Lungs: No focal consolidation. Pleura: No effusion. No pneumothorax. Cardiomediastinal contours: Unremarkable Bones: No acute osseous abnormality. IMPRESSION: No acute cardiopulmonary disease. X-Ray, Labs, Meds, VS Comment 89-year-old female with history of hypertension, diabetes, dyslipidemia and arthritis presenting with epistaxis Vitals remarkable for heart rate 120, BP 176/61 Exam remarkable for moderate dark red epistaxis from the right naris Rhythm strip independently interpreted by me: Sinus tach, rate 120, no ectopy. Chest x-ray Unremarkable CBC, basic metabolic panel and coagulation panel unremarkable Patient treated with the following in the ED: Nasal packing inserted into the right naris. Hemostasis. Please see procedure note for details On re-evaluation at 9:10 p.m., the patient is resting comfortably with stable vitals. Oxygen saturation is normal on room air and blood pressure is 112/70. Patient appears stable for discharge with close outpatient follow-up with her primary physician. Time of 1ST Reevaluation: 14:55 Reevaluation 1ST: Unchanged Patient Education/Counseling: Diagnosis, Treatment, Prognosis Family Education/Counseling: No Family Present Departure 1 Departure Time of Disposition: 21:11 Impression: Primary Impression: Epistaxis Disposition: 01 HOME / SELF CARE / HOMELESS Condition: Stable Additional Instructions: Your blood tests and chest x-ray were unremarkable. Keep the nasal packing in place and follow-up with your primary doctor or in ER in 2 days for recheck and packing removal. Discharged With: Relative Critical Care Note Critical Care Time?: No Stability Stability form required: No Heart Score Heart Score: Heart Score Response (Comments) Value History N/A 0 EKG N/A 0 Age N/A 0 Risk Factors N/A 0 Troponin N/A 0 Total 0 I personally scribed for FUNMI DURAN MD ([email or web address]) on 08/30/24 at 14:45. Electronically submitted by Leon Lamb ([facility]). I personally scribed for FUNMI DURAN MD ([email or web address]) on 08/30/24 at 17:35. Electronically submitted by Leon Lamb ([facility]). FUNMI DRUAN MD Aug 30, 2024 14:45
--- NOTE | 2024-08-30 15:02 | DVH ---
EXAM: XY CHEST PORTABLE Indication: sob Technique: Single frontal view of the chest was obtained Comparison: XY CHEST PORTABLE on DOS: 05/30/24, XY CHEST PORTABLE on DOS: 09/29/22 FINDINGS: Lines and Tubes: None Lungs: No focal consolidation. Pleura: No effusion. No pneumothorax. Cardiomediastinal contours: Unremarkable Bones: No acute osseous abnormality. IMPRESSION: No acute cardiopulmonary disease.
[2024-08-30 15:07] LABS: Basophils # (auto) 0.1 10 ^3/uL (0-0.2); Basophils % (auto) 1.1 % (0.0-2.0); Eosinophils # (auto) 0.1 10 ^3/uL (0-0.8); Hematocrit 38.2 % (36.0-46.0); Hemoglobin 12.7 g/dL (12.2-16.2); Lymphocytes # (auto) 2.3 10 ^3/uL (0.4-5.4); Lymphocytes % (auto) 30.4 % (10.0-50.0); Mean Corpuscular Hemoglobin 29.5 pg (28.0-32.0); Mean Corpuscular Hgb Conc. 33.3 g/dL (32.0-36.0); Mean Corpuscular Volume 88.8 fL (80.0-100.0); Monocytes # (auto) 0.6 10 ^3/uL (0-1.3); Monocytes % (auto) 7.9 % (0.0-12.0); Neutrophils # (auto) 4.5 10 ^3/uL (1.6-8.6); Neutrophils % (auto) 59.6 % (37.0-80.0); Platelet Count (auto) 267 10^3/uL (140-450); Red Cell Distribution Width 13.9 % (11.8-14.3); White Blood Cell 7.5 10^3/uL (4.4-10.8)
[2024-08-30 15:16] LABS: Chloride 104 mmol/L (98-107); Potassium 4.2 mmol/L (3.5-5.1); Sodium 142 mmol/L (136-145)
[2024-08-30 15:17] LABS: Anion Gap 10 (5-15); Carbon Dioxide 28 mmol/L (20-31)
[2024-08-30 15:18] LABS: Calcium 9.3 mg/dL (8.7-10.4)
[2024-08-30 15:22] LABS: BUN/Creatinine Ratio 19.1 (10.0-20.0); Blood Urea Nitrogen 13 mg/dL (9-23)
[2024-08-30 15:23] LABS: INR 1.08 (0.9-1.15); Partial Thromboplastin Time 25.5 SEC (24.5-34.5); Prothrombin Time 11.4 sec (9.3-11.8)
[2024-08-30 15:25] LABS: Glucose 172 mg/dL (74-106)
[2024-08-30 19:30] VITALS: PULSE 88; RESP 20; O2SAT 92
[2024-08-30 20:10] VITALS: BP 134/62; PULSE 88; RESP 18; TEMP 97.7; O2SAT 91
== END 2024-08-30 21:55 | disposition home or self-care (01) ==
LOC: EDBD 14:20 → ER 14:22
DX: R04.0 Epistaxis (principal); E11.9 Type 2 diabetes mellitus without complications; I10 Essential (primary) hypertension; M19.90 Unspecified osteoarthritis, unspecified site; E78.5 Hyperlipidemia, unspecified; Z79.84 Long term (current) use of oral hypoglycemic drugs; Z79.899 Other long term (current) drug therapy; Z91.013 Allergy to seafood
CPT/HCPCS: 30901; 36415; 71045; 80048; 85025; 85610; 85730

== ENCOUNTER 2024-09-01 14:02 | Emergency (ER) | payer OTHER, MEDICAID ==
[~2024-09-01] VITALS: Ht 152.4 cm; Wt 67.6 kg
--- NOTE | 2024-09-01 14:30 | ECG ---
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
--- NOTE | 2024-09-01 14:47 | ED.PDOC ---
HPI Comments 89-year-old female presents with a rhino rocket x 2 days and associated high heart rate. Patient had a visit to this ER on August 30 and had been seen by Dr. Molly Valle whom placed a rhino rocket into patient's right nares. Patient denies any epistaxis since placing the rhino rocket. Patient is also presenting with asymptomatic high heart rate in the 120s. Patient denies any headache, chest pain, or dizziness. PMHx: HLD, HTN, DM, Arthritis PSHx: None dana: rhino rocket removal HPI: Poor Historian. REVIEW OF SYSTEMS: CONSTITUTIONAL: Denies acute: fever, diaphoresis, chills, generalized weakness. HEAD: Denies acute: headache, photophobia Eyes: Denies acute: Double vision, vision loss, eye pain, eye discharge. EARS: Denies acute: tinnitus, hearing loss, ear discharge, ear pain, THROAT: Denies acute: sore throat, swelling, difficulty swallowing , pain with swallowing, change in voice. No obstruction, no swelling, no posterior bleeding seen. NECK: Denies acute: neck pain, neck swelling, stiff neck. HEART: Denies acute : chest pain, LUNGS: Denies acute: SOB, wheezing, cough, hemoptysis ABDOMEN: Denies acute: abdominal pain, Nausea, Vomiting, diarrhea, melena , hematemesis, hematochezia SKIN: Denies acute: rash, redness, lesions, itchiness. EXTREMITIES: Denies acute: calf pain, numbness, tingling, weakness, denies pain in extremity. Denies acute: Low back pain. Neuro: Denies acute: focal neurological deficit, motor or sensory focal neurological de ficit, tremors, seizure like activity, confusion, dizziness, change in mental status, loss of bowel or bladder function, cauda equina like symptoms. : Denies acute: dysuria, hematuria, flank pain, increase in urinary frequency. PSYCH: Denies acute: hallucination, suicidal ideation, homicidal ideation. FEMALE: Denies acute: abnormal vaginal bleeding, foul odor, unusual discharge. PHYSICAL EXAM: General: -----mild---acute distress, awake and alert. Head: normocephalic, atraumatic. Neck: supple, trachea is midline, no swelling. Throat: Normal phonation. Nose. Presence of right rhino rocket Eyes:, no erythema, no purulent discharge, no proptosis, no icterus. Heart: regular tachycardia, no significant murmur appreciated. Lungs: no apparent respiratory distress, Able to speak in full sentences. No wheezing, no rhonchi, no crackles. No stridors Clear to auscultation bilaterally. Abdomen: non tender to palpation, non distended, soft, no guarding, no rebound, + bowel sounds. Neuro: Awake, Alert, oriented to name, self, situation, follows commands GCS=15. Speech is normal. Skin: no petechia, no purpura, no cyanosis, non-pale, not jaundice. Lower extremities: --no - Pitting edema no deformity, no focal swelling, no calf TTP. Makes eye contact. moves all four extremities. Face: no apparent facial droop. Ambulating in the ED independently. No nuchal rigidity, Kernig's sign, Brudzinski's sign, no meningeal signs. ED COURSE: Chief Complaint: Wound Check Time Seen by MD: 14:30 Primary Care Provider: UNKNOWN Reviewed Notes: Nurses Notes, Medications, Allergies Allergies: Coded Allergies: Shellfish Allergy (Unverified Allergy, Severe, 09/25/22) Anaphylactic Home Meds Active Scripts Pantoprazole Sodium Sesquihydr (Protonix) 40 Mg Tab, 40 MG PO DAILY, #30 TAB Prov:JACKY NAVARRO DO 03/01/23 Reported Medications Metformin Hydrochloride (Metformin Hcl) 850 Mg Tab, 1 TAB PO BID 09/27/22 Tramadol Hcl (Tramadol Hcl) 50 Mg Tab, 1 TAB PO Q8HPRN PRN for pain 09/27/22 Glipizide (Glipizide Er) 2.5 Mg Tab, 2.5 MG PO DAILY@DINNER for 30 Days, MG 09/27/22 Glyburide (Glyburide) 5 Mg Tab, 5 MG PO DAILY for 30 Days, MG 09/27/22 Fenofibrate (Fenofibrate) 160 Mg Tab, 1 TAB PO DAILY, #30 TAB 5 Refills 09/27/22 Potassium Chloride (Klor-Con M10) 10 Meq Tab, 1 TAB PO DAILY, #30 TAB 5 Refills 09/27/22 Pantoprazole Sodium Sesquihydr (Pantoprazole Sodium) 40 Mg Tab, 20 MG PO DAILY, TAB 09/27/22 Gabapentin (Gabapentin) 300 Mg Cap, 300 MG PO BID for 30 Days, MG 09/27/22 Aspirin (Asa) 81 Mg Ch 09/07/10 Glyburide (Micronase) 2.5 Mg Tb 09/07/10 Losartan Potassium (Cozaar) 25 Mg Tab 09/07/10 Naproxen (Naprosyn) 125 Mg/5 Ml Natalie 09/07/10 Metformin Hydrochloride (Metformin Hcl) 500 Mg Tab 09/07/10 Hydrochlorothiazide W/Triamter (Hctz/Triamterene) 1 Cap Cap 09/07/10 Information Source: Patient Mode of Arrival: Ambulatory Severity: Moderate Past Medical History PAST MEDICAL HISTORY: Arthritis, DM, High Lipids, HTN Surgical History: Denies all surgeries BARIATRIC COORDINATOR History: Denies all BARIATRIC COORDINATOR Hx Family History Family History: Reviewed,noncontributory to illness, Unknown Social History Smoker: Non-Smoker Alcohol: Denies ETOH Use Drugs: Denies Drug Use Lives In: Home Was a procedure done? Was a procedure done?: No CP Differential Dx Differential Diagnosis: A-fib, A-Flutter, Angina, Anxiety / Panic Attack, Atrial Dysrhythmia, AV Block 1st Degree, AV Block 2nd Degree, AV Block 3rd Degree, Digoxin Toxicity, Electrolyte Disorder, Heart Failure, Hyperthyroidism, Hyperventilation, Hypoxia, MAT, VT, PAC's, Pacemaker Malfunction, PSVT, Pulmonary Embolus, PVC's, Renal Failure, Sinus Tachycardia, Torsades De Pointes, Ventricular Dysrhythmia, V-Fib, V-Tach, WPW X-Ray, Labs, Meds, VS Vital Signs Date Time Temp Pulse Resp B/P (MAP) Pulse Ox O2 Delivery O2 Flow Rate FiO2 09/01/24 17:17 92 18 95 Room Air* 0 21 09/01/24 17:17 97.8 92 18 118/65 (82) 95 97.8 09/01/24 14:29 106 09/01/24 14:10 97.7 107 18 111/58 (75) 94 97.7 Lab Test 09/01/24 17:41 09/01/24 15:50 09/01/24 14:50 09/01/24 14:21 Range/Units Magnesium Level 1.3 L 0.9 *L 1.6-2.6 mg/dL Troponin I High Sensitivity < 3 L < 3 L </=34 ng/L White Blood Count 8.2 4.4-10.8 10^3/uL Red Blood Count 4.01 4.0-5.20 10^6/uL Hemoglobin 11.9 L 12.2-16.2 g/dL Hematocrit 35.7 L 36.0-46.0 % Mean Corpuscular Volume 89.1 80.0-100.0 fL Mean Corpuscular Hemoglobin 29.7 28.0-32.0 pg Mean Corpuscular Hemoglobin Concent 33.3 32.0-36.0 g/dL Red Cell Distribution Width 13.7 11.8-14.3 % Platelet Count 262 140-450 10^3/uL Mean Platelet Volume 8.8 6.9-10.8 fL Neutrophils (%) (Auto) 58.3 37.0-80.0 % Lymphocytes (%) (Auto) 32.0 10.0-50.0 % Monocytes (%) (Auto) 7.6 0.0-12.0 % Eosinophils (%) (Auto) 1.2 0.0-7.0 % Basophils (%) (Auto) 0.9 0.0-2.0 % Neutrophils # (Auto) 4.8 1.6-8.6 10 ^3/uL Lymphocytes # (Auto) 2.6 0.4-5.4 10 ^3/uL Monocytes # (Auto) 0.6 0-1.3 10 ^3/uL Eosinophils # (Auto) 0.1 0-0.8 10 ^3/uL Basophils # (Auto) 0.1 0-0.2 10 ^3/uL Nucleated Red Blood Cells 0.0 % Sodium Level 141 136-145 mmol/L Potassium Level 4.7 3.5-5.1 mmol/L Chloride Level 104 98-107 mmol/L Carbon Dioxide Level 27 20-31 mmol/L Anion Gap 10 5-15 Blood Urea Nitrogen 15 9-23 mg/dL Creatinine 0.78 0.550-1.02 mg/dL Glomerular Filtration Rate Calc 73 >90 mL/min BUN/Creatinine Ratio 19.2 10.0-20.0 Serum Glucose 151 H 74-106 mg/dL Lactic Acid Level 1.9 0.4-2.0 mmol/L Calcium Level 8.6 L 8.7-10.4 mg/dL Total Bilirubin 0.4 0.2-1.0 mg/dL Aspartate Amino Transferase (AST) 10 L 13-40 U/L Alanine Aminotransferase (ALT) 17 7-40 U/L Alkaline Phosphatase 32 L 46-116 U/L B-Type Natriuretic Peptide 44.72 0-100 pg/mL Total Protein 6.9 5.7-8.2 g/dL Albumin 4.5 3.2-4.8 g/dL Urine Color Colorless Yellow Urine Clarity Clear Clear Urine pH 5.0 5.0-9.0 Urine Specific [place] 1.005 1.001-1.035 Urine Protein Negative Negative Urine Ketones Negative Negative Urine Blood Negative Negative /uL Urine Nitrite Negative Negative Urine Bilirubin Negative Negative Urine Urobilinogen Normal Negative mg/dL Urine Leukocyte Esterase Negative Negative /uL Urine RBC None seen 0 - 4 /hpf Urine Microscopic WBC 0-5 /HPF Urine Squamous Epithelial Cells None seen <5 /hpf Urine Bacteria None seen None Seen /hpf Urine Glucose Normal Normal mg/dL PATIENT: ESTHER VALDEZACCT: [id number]: [id number] : 1935 LOC: ER ROOM / BED: / AGE / SEX: 89 / F ADM STATUS: REG ER SERVICE [id number] ORDERING PHYSICIAN: PHILIPPE DE LA CRUZ DO PROCEDURE(s): CXRP - CHEST PORTABLE REASON: irregular HR ORDER NUMBER(s): [id number], ACCESSION NUMBER(s): [id number] INDICATION: irregular HR TECHNIQUE: Frontal view of the chest. COMPARISON: XY CHEST PORTABLE on DOS: 08/30/24, XY CHEST PORTABLE on DOS: 05/30/24, XY CHEST PORTABLE on DOS: 09/29/22 FINDINGS: . The heart and mediastinal contours are grossly unremarkable. There is no evidence of pleural disease. The lungs are clear. The bony structures of the chest are intact without fracture. IMPRESSION: 1. No evidence of acute disease. ATED BY: EPIFANIO TURNER MD DICTATED DATE/TIME: 09/01/24 1455 SIGNED BY: EPIFANIO TURNER MD SIGNED DATE/TIME: 09/01/24 1455 Time of 1ST Reevaluation: 15:00 Reevaluation 1ST: Unchanged Time of 2ND Reevaluation: 18:45 (Rhino rocket was removed after balloon was deflated. The patient tolerated it well. No bleeding.) Time of 3RD Reevaluation: 19:30 (I ordered additional magnesium replacement however patient does not want to wait to receive it. She said she is going to go home and take some magnesium at home and she will return if she needs to.) Patient Education/Counseling: Diagnosis, Treatment Family Education/Counseling: Diagnosis, Treatment Comments Patient presented with the above HPI.---tachycardia---workup was initiated. patient was found with the above mentioned diagnosis. the following medications were ordered: please refer to order lists of meds and tests obtained by myself Dr. De La Cruz. Patient ED course and VS have been stabilized. Patient has been reassessed in the ED and remained in a stable condition. Pertinent incidental findings were discussed with the patient and/or family. Patient/family voices understanding and is agreeable with plan. Patient has been observed in the ED adequate length of time to insure improvement/stability. Escalation of care considered: Consideration of escalation to observation or admission Magnesium was replaced. Nasal packing was removed. Patient was DISCHARGED home in a stable condition. All the reports of any imaging studies that were ordered by myself were reviewed by myself. Departure 1 Departure Time of Disposition: 18:47 Impression: Primary Impression: Hypomagnesemia Additional Impression: Encounter for removal of nasal packing Disposition: 01 HOME / SELF CARE / HOMELESS Condition: Stable Additional Instructions: Additional instructions: You MUST follow-up with your primary care/family doctor in 1 to 2 days. If you are unable to see your primary care/family doctor, please return to our emergency room for re-assessment and re-evaluation in 1 to 2 days. Return to the emergency room here in our facility or to the nearest ER [facility] if your symptoms change or worsen. CONSULTATIONS: you MUST Follow-up for consultation as soon as possible with: -ENT doctor in 1-2 days. Please call for appointment. You MUST call the consultants office yourself to make an appointment. You may need to arrange that through your insurance and/or your primary/family doctor. If you are unable to see the product development consultant in 1 to 2 days, you must return to our emergency room (or any other ER of your choice) for re-assessment and re- evaluation. Adequate fluid hydration. Monitoring magnesium level in 48-72 hours. Discharged With: Self Critical Care Note Critical Care Time?: No Heart Score Heart Score: Heart Score Response (Comments) Value History Slightly Suspicious 0 EKG Normal 0 Age >65 2 Risk Factors >3 or Hx ASHD 2 Troponin Normal limit 0 Total 4 I personally scribed for PHILIPPE DE LA CRUZ DO ([email or web address]) on 09/01/24 at 14:47. E lectronically submitted by Jerald Rey ([email or web address]). I personally scribed for PHILIPPE DE LA CRUZ DO ([email or web address]) on 09/01/24 at 16:16. Gali ctronically submitted by Jerald Rey ([email or web address]). I personally scribed for PHILIPPE DE LA CRUZ DO ([email or web address]) on 09/01/24 at 18:43. Elect ronically submitted by Jerald Rey ([email or web address]). I personally scribed for PHILIPPE DE LA CRUZ DO ([email or web address]) on 09/01/24 at 18:47. Electro nically submitted by Jerald Rey ([email or web address]). PHILIPPE DE LA CRUZ DO September 01, 2024 14:47
--- NOTE | 2024-09-01 14:58 | DVH ---
INDICATION: irregular HR TECHNIQUE: Frontal view of the chest. COMPARISON: XY CHEST PORTABLE on DOS: 08/30/24, XY CHEST PORTABLE on DOS: 05/30/24, XY CHEST PORTABLE o n DOS: 09/29/22 FINDINGS: . The heart and mediastinal contours are grossly unremarkable. There is no evidence of pleural disea se. The lungs are clear. The bony structures of the chest are intact without fracture. IMPRESSION: 1. No evidence of acute disease.
[2024-09-01 15:08] LABS: Basophils # (auto) 0.1 10 ^3/uL (0-0.2); Basophils % (auto) 0.9 % (0.0-2.0); Eosinophils # (auto) 0.1 10 ^3/uL (0-0.8); Eosinophils % (auto) 1.2 % (0.0-7.0); Hematocrit 35.7 % (36.0-46.0); Hemoglobin 11.9 g/dL (12.2-16.2); Lymphocytes # (auto) 2.6 10 ^3/uL (0.4-5.4); Mean Corpuscular Hemoglobin 29.7 pg (28.0-32.0); Mean Corpuscular Hgb Conc. 33.3 g/dL (32.0-36.0); Mean Corpuscular Volume 89.1 fL (80.0-100.0); Monocytes # (auto) 0.6 10 ^3/uL (0-1.3); Monocytes % (auto) 7.6 % (0.0-12.0); Neutrophils # (auto) 4.8 10 ^3/uL (1.6-8.6); Neutrophils % (auto) 58.3 % (37.0-80.0); Platelet Count (auto) 262 10^3/uL (140-450); Red Blood Cells 4.01 10^6/uL (4.0-5.20); Red Cell Distribution Width 13.7 % (11.8-14.3); White Blood Cell 8.2 10^3/uL (4.4-10.8)
[2024-09-01 15:24] LABS: Alanine Aminotransferase 17 U/L (7-40); Albumin 4.5 g/dL (3.2-4.8); Anion Gap 10 (5-15); BUN/Creatinine Ratio 19.2 (10.0-20.0); Bilirubin, Total 0.4 mg/dL (0.2-1.0); Blood Urea Nitrogen 15 mg/dL (9-23); Carbon Dioxide 27 mmol/L (20-31); Chloride 104 mmol/L (98-107); Potassium 4.7 mmol/L (3.5-5.1); Sodium 141 mmol/L (136-145); Total Protein 6.9 g/dL (5.7-8.2)
[2024-09-01 15:25] LABS: Alkaline Phosphatase 32 U/L (46-116); Aspartate Aminotransferase 10 U/L (13-40); Calcium 8.6 mg/dL (8.7-10.4); Glucose 151 mg/dL (74-106)
[2024-09-01 15:28] LABS: Magnesium 0.9 mg/dL (1.6-2.6)
[2024-09-01] MEDS: MAGNESIUM OXIDE 400 MG TAB PO ONE (17:08)
[2024-09-01] MEDS: MAGNESIUM SULFATE 1GM/100ML 100 ML IV ONE (17:14)
[2024-09-01 17:17] VITALS: BP 118/65; PULSE 92; RESP 18; TEMP 97.8; O2SAT 95
[2024-09-01 17:49] LABS: Urine Bacteria None Seen /hpf (None Seen)
[2024-09-01 18:00] LABS: Urine Blood Negative /uL (Negative); Urine Clarity Clear (Clear); Urine Color Colorless (Yellow); Urine Protein, UAD Negative (Negative); Urine Specific Gravity 1.005 (1.001-1.035); Urine Squamous Epithelial Cell None Seen /hpf (<5); Urine Urobilinogen Normal (Negative)
[2024-09-01] MEDS ORDERED: MAGNESIUM SULFATE 1GM/100ML 100 ML IV ONE (18:45)
== END 2024-09-01 19:35 | disposition home or self-care (01) ==
LOC: ER 14:02
DX: E83.42 Hypomagnesemia (principal); I10 Essential (primary) hypertension; E11.9 Type 2 diabetes mellitus without complications; E78.5 Hyperlipidemia, unspecified; Z88.8 Allergy status to other drugs, medicaments and biological substances; Z79.899 Other long term (current) drug therapy; Z79.84 Long term (current) use of oral hypoglycemic drugs
CPT/HCPCS: 36415; 71045; 80053; 81001; 83605; 83735; 83880; 84484; 85025; 93005; 96365; 99285; J3475